=== PATIENT | male | born 1945 | race Caucasian/White ===

== ENCOUNTER 2017-07-19 22:32 | Inpatient (IN) | payer MEDICARE, OTHER ==
[~2017-07-19] VITALS: Ht 180.3 cm; Wt 132.4 kg
[~2017-07-19 22:32] MED LIST: ACTOS 45 MG45 M1; ASPIRIN EC81 M1 PO; B12INJ IM; BLOOD PRESSURE; CARDURA2 MG PO; CARVEDILOL25 MG PO; CIPROFLOXACIN500 M1 PO; COLACE100 MG PO; COREG PO; CRESTOR10 MG PO; CRESTOR20 MG PO; DIABETA; FENOFIBRATE160 MG; FISH OIL 1,0001 EAC5 PO; FLONASE 0.05%50 MCG; GLUCOPHAGE1000 MG; GLYBURIDE 5 MG T5 M1; HCTZ; HYDRALAZINE 2525 MG PO; HYDRALAZINE HC100 MG PO; HYDROCHLOROTHIA25 M1; HYDROCODONE-APA1 TA1 PO; HYDROXYCHLOROQ200 M1 PO; JANUVIA50 MG PO; KLOR-CON 1010 MEQ PO; LANTUS; LASIX 40 MG TAB40 M1 PO; LISINOPRIL40 MG; METFORMIN; MIRALAX255 GM PO; NADOLOL 80 MG; NORCO 10-325 T1 EACH PO; NORCO 7.5-3251 EACH PO; OMEPRAZOLE20 M2 PO; OXYCODONE HCL 55 MG PO; PERCOCET 5-3251 EACH PO; PERCOCET PO; PRADAXA75 MG PO; SORINE 80 MG TA80 M1 PO; TAMSULOSIN HCL0.4 MG PO; XARELTO10 MG PO; ZESTRIL; ZESTRIL20 MG PO; ZOFRAN ODT4 MG SUBLING; [UNRECOGNIZED DRUG - OTHER]
[2017-07-19 22:35] VITALS: BP 200/101
[2017-07-19] MEDS ORDERED: INFED100 MG/2 M (22:41)
[2017-07-19 23:01] LABS: ABSOLUTE BASOPHILS 0.1 thou/uL (0.0-0.2); ABSOLUTE EOSINOPHILS 0.3 thou/uL (0.0-0.7); ABSOLUTE LYMPHOCYTES 0.6 thou/uL (0.8-5.3); ABSOLUTE MONOCYTES 0.3 thou/uL (0.0-1.2); ABSOLUTE NEUTROPHILS 3.3 thou/uL (1.6-8.1); BASOPHILS 1.2 %; EOSINOPHILS 5.8 %; HEMATOCRIT 37.1 % (42.0-52.0); HEMOGLOBIN 12.7 gm/dL (14.0-18.0); LYMPHOCYTES 12.4 %; MCHC 34.2 g/dL (28.0-37.0); MCV 87.7 fL (80.0-100.0); MONOCYTES 6.7 %; MPV 7.9 fl. (7.2-11.1); NUCLEATED RBCS 0 /100WBC; PLATELET COUNT* 94 thou/uL (150-400); POLYS 73.9 %; RBC 4.23 mil/uL (4.50-6.00); RDW-CV 13.3 % (10.5-14.5); WBC 4.5 thou/uL (4.0-11.0)
[2017-07-19 23:11] LABS: ANION GAP 6 mmol/L (7-16); BUN 35 mg/dL (7-18); CALCIUM 8.4 mg/dL (8.5-10.1); CHLORIDE 110 mmol/L (98-107); CO2 28 mmol/L (21-32); GLUCOSE 144 mg/dL (70-99); SODIUM 144 mmol/L (136-145)
[2017-07-19 23:15] LABS: APTT 32.1 Seconds (25.0-31.3); INR 1.1; PROTIME 10.8 Seconds (9.20-11.50)
[2017-07-19 23:29] LABS: ALBUMIN 3.6 g/dL (3.4-5.0); ALKALINE PHOSPHATASE 106 U/L (46-116); CK-MB MASS 0.9 ng/mL (<0.5-3.6); LIPASE 153 U/L (73-393); MAGNESIUM 1.9 mg/dL (1.8-2.4); NT-PRO BRAIN NAT PEPTIDE 1219 pg/mL (<300); SGOT 18 U/L (15-37); SGPT 24 U/L (30-65); TOTAL BILIRUBIN 0.3 mg/dL (<0.1-1.0); TOTAL PROTEIN 6.6 g/dL (6.4-8.2); TROPONIN-I LEVEL <0.06 ng/mL (<0.06)
[2017-07-20 01:10] VITALS: BP 150/83
[2017-07-20 08:00] VITALS: BP 179/88
[2017-07-20 12:09] VITALS: BP 154/86
--- NOTE | 2017-07-20 15:21 | EKG ---
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1945 Requested By: Jarett Hernandez Order Number: [id number] MD: Dominguez Kramer Measurements Intervals [place] Rate: 113 P: CA: QRS: -14 QRSD: 96 T: 76 QT: 357 QTc: 490 Interpretive Statements Atrial fibrillation Abnormal R-wave progression, early transition Minimal ST depression, anterolateral leads Borderline prolonged QT interval Compared to ECG 12/26/2015 10:56:58 ST (T wave) deviation now present Sinus arrhythmia no longer present Electronically Signed On 07-20-2017 15:21:07 RN OBGYN by Dominguez Kramer [email or web address] <ELECTRONICALLY SIGNED> By: Dominguez Kramer MD, FACC 07/20/17 1521 230 230 Dominguez Kramer MD, FACC /EPI
[2017-07-20 17:18] VITALS: BP 159/87
[2017-07-20 20:00] VITALS: BP 169/94
[2017-07-21] VITALS (13 sets, daily range): BP systolic 146–206; BP diastolic 65–113
[2017-07-21 05:10] LABS: ABSOLUTE EOSINOPHILS 0.3 thou/uL (0.0-0.7); ABSOLUTE LYMPHOCYTES 0.7 thou/uL (0.8-5.3); ABSOLUTE MONOCYTES 0.4 thou/uL (0.0-1.2); ABSOLUTE NEUTROPHILS 3.9 thou/uL (1.6-8.1); BASOPHILS 0.9 %; EOSINOPHILS 5.5 %; HEMATOCRIT 35.5 % (42.0-52.0); HEMOGLOBIN 12.4 gm/dL (14.0-18.0); LYMPHOCYTES 13.2 %; MCH 29.8 pg (26.0-34.0); MCHC 34.9 g/dL (28.0-37.0); MCV 85.5 fL (80.0-100.0); MONOCYTES 7.3 %; MPV 8.4 fl. (7.2-11.1); NUCLEATED RBCS 0 /100WBC; PLATELET COUNT* 105 thou/uL (150-400); POLYS 73.1 %; RBC 4.16 mil/uL (4.50-6.00); RDW-CV 13.5 % (10.5-14.5); WBC 5.4 thou/uL (4.0-11.0)
[2017-07-21 05:49] LABS: CALCIUM 8.5 mg/dL (8.5-10.1); CREATININE 1.7 mg/dL (0.6-1.3)
--- NOTE | 2017-07-21 08:50 | CON ---
[address] [address] CONSULTATION Name: REA,BHAVNA R Room: [address] IN .R.#: [id number] Admission: 07/19/17 Attend Phys: Kalie Norton MD Discharge: Date of : 49 Report #: [id number] THIS REPORT FOR: //name// CC: Calixto Norton DATE OF SERVICE: 07/20/2017 COMPUTED TOMOGRAPHY TECHNICIAN: Adarsh Haney MD. CHIEF COMPLAINT: Atrial fibrillation. HISTORY OF PRESENT ILLNESS: The patient is a 72-year-old male with paroxysmal atrial fibrillation, presented with onset of heart racing, skipping and mild dizziness. He was not complaining of chest pain or pressure. He had been anticoagulated with Pradaxa, but then the cost went up and he stopped taking it altogether, but he has been compliant with sotalol. Presently, he only takes sotalol once daily. He denies neuro symptoms, slurred speech, numbness or visual changes. His blood pressure is stable. Denies syncope or presyncope. This is his third recurrence of atrial fibrillation since his initial diagnosis. PAST MEDICAL HISTORY: Paroxysmal atrial fibrillation, status post 2 prior cardioversions, hypertension, obesity, osteoarthritis. HOME MEDICATIONS: Sotalol 80 mg once daily, Lasix 40 mg p.r.n., Plaquenil 200 mg p.o. b.i.d., doxazosin 2 mg daily, rosuvastatin 20 mg daily, omeprazole and iron. ALLERGIES: HE HAS ALLERGIES TO LATEX. SOCIAL HISTORY: He is not a smoker. He drinks wine occasionally. REVIEW OF SYSTEMS: No fevers or chills. RESPIRATORY: No cough or shortness of breath. CARDIOVASCULAR: Positive irregular. Positive palpitations. Denies chest pain, no orthopnea, no PND. MUSCULOSKELETAL: Mild edema. GENITOURINARY: No dysuria or hematuria. SKIN: No rashes. GASTROINTESTINAL: No hematemesis, melena, black colored stools, [place] [address] CONSULTATION Name: BHAVNA REA Room: [address] IN [facility]#: [id number] Admission: 07/19/17 Attend Phys: Kalie Norton MD Discharge: Date of : 49 Report #: [id number] PHYSICAL EXAMINATION: VITAL SIGNS: Blood pressure on presentation. PHYSICAL EXAMINATION: VITAL SIGNS: Blood pressure on presentation was over 200 systolic and inpatient on the IV Cardizem is 179/88, heart rate 66 in atrial fibrillation. Temperature is 37.0, respirations 12. GENERAL: Obese, elderly male who is alert, no apparent distress. HEENT: Eyes, EOMs are intact. No facial asymmetry. NECK: Supple. No jugular venous distention. CARDIOVASCULAR: Irregular, tachycardic. HEMATOLOGIC: No anemia or bleeding disorders. RENAL: No history of kidney failure. LABORATORY DATA: Hemoglobin is 12.7, white blood cell count is 4.5. ECG on presentation demonstrated atrial fibrillation, heart rate 113. Normal ST segments. Borderline LVH, sodium is 144, potassium 4.0, chloride is 110, CO2 is 28, BUN is 35, creatinine is 2.0, GFR is 33, troponin I is 0.06. NT-proBNP is 1219. INR is 1.1. Chest x-ray shows normal single view chest. IMPRESSION: 1. Atrial fibrillation, paroxysmal. This patient does have symptoms when he is in atrial fibrillation. We discussed different treatment options and he would prefer to be in sinus rhythm, I will leave him on IV Cardizem and if he does not convert, we will plan for THADDEUS-guided cardioversion tomorrow. I would like to reload him with sotalol 80 mg twice daily. 2. Hypertension, malignant. He will need more aggressive medical therapy than his Cardura. 3. Oral anticoagulation. I will go ahead and restart oral anticoagulation in anticipation of a possible DC cardioversion with Xarelto. My understanding is that his Pradaxa cost had increased with this plan, but he is unsure of other novel agents which he would prefer to be on. We will provide him with samples while he is checking with his insurance company on cost. <ELECTRONICALLY SIGNED> By: Dominguez Kramer MD, FACC 07/21/17 0850 1111 1730Dominguez Kramer MD, FACC /nt
--- NOTE | 2017-07-21 16:33 | TEE ---
[place] [address] TRANSESOPHAGEAL ECHOCARDIOGRAM Name: BHAVNA ERA Dionte Room: [address] IN [facility]#: [id number] Admission: 07/19/17 Attend Phys: Kalie Norton, Discharge: Date of : 49 Date of Service: 07/21/17 1633 Report #: [id number] THIS REPORT FOR: //name// APPROVED REPORT Study performed: 07/21/2017 12:18:29 EXAM: Transesophageal Echocardiogram Patient Location: In-Patient Room #: [facility] Status: routine BSA: 2.41 HR: 70 bpm BP: 184/115 mmHg Rhythm: Atrial Fibrillation Other Information Study Quality: Good Indications Atrial Fibrillation Echo Enhancing Agent Indication: Rule out Shunt Agent(s) / Amount(s) Used: Agitated Saline 10 cc Procedure After obtaining informed consent, patient underwent transesophageal echo in the [employer]. Type of Sedation : Conscious Sedation Sedation was administered by Jesica Fraser RN. Sedation start time: 1243 Case end Time: 1300 Sedation was achieved intravenously with: Versed (6) Fentanyl (100) Transesophageal probe was inserted and advanced into esophagus without difficulty by Adarsh Haney MD, [facility]. Echo enhancement indication: R/O Septal defect. Echo enhancement agent administered: Agitated Saline The THADDEUS was performed without complications. Synchronized Cardioversion acheived with 360 Joules after 1 attempt(s). Rhythm following Synchronized Cardioversion: Normal Sinus Rhythm Throughout the procedure, the blood pressure, pulse oximetry, cardiac rhythm, and rate were monitored. The patient tolerated the procedure without adverse [place] [address] TRANSESOPHAGEAL ECHOCARDIOGRAM Name: BHAVNA REA Dionte Room: [address] IN [facility]#: [id number] Admission: 07/19/17 Attend Phys: Kalie Norton, Discharge: Date of : 49 Date of Service: 07/21/17 1633 Report #: [id number] from conscious sedation was uneventful and vital signs were stable. Left Ventricle The left ventricle is normal size. There is normal LV segmental wall motion. There is normal left ventricular wall thickness. Left ventricular systolic function is normal. LVEF is 55-60%. Right Ventricle The right ventricle is normal size. The right ventricular systolic function is normal. Atria No thrombus is visualized in the left atrium or appendage. Left atrium is moderately dilated. Interatrial septum is intact without evidence of ASD or PFO. The right atrium size is normal. Aortic Valve The aortic valve is normal in structure. No aortic regurgitation is present. There is no aortic valvular stenosis. Mitral Valve The mitral valve is normal in structure. Trace mitral regurgitation. No evidence of mitral valve stenosis. Tricuspid Valve The tricuspid valve is normal in structure. There is no tricuspid valve regurgitation noted. Pulmonic Valve The pulmonary valve is normal in structure. There is no pulmonic valvular regurgitation. Great Vessels The aortic root is normal in size. Pericardium There is no pericardial effusion. <Conclusion> The left ventricle is normal size. There is normal left ventricular wall thickness. Left ventricular systolic function is normal. Interatrial septum is intact without evidence of ASD or PFO. No thrombus is visualized in the left [place] [address] TRANSESOPHAGEAL ECHOCARDIOGRAM Name: BHAVNA REA Room: [address] IN .R.#: [id number] Admission: 07/19/17 Attend Phys: Kalie Norton, Discharge: Date of : 49 Date of Service: 07/21/171632 Report #: [id number] Left atrium is moderately dilated. Trace mitral regurgitation. <ELECTRONICALLY SIGNED> By: Adarsh Haney MD, FACC 07/21/171632 32 32 Adarsh Haney MD, FACC /INF
[2017-07-21] MEDS ORDERED: KLOR-CON 1010 MEQ PO (18:22)
[2017-07-21] MEDS ORDERED: XARELTO20 MG PO (18:23)
[2017-09-03] MEDS ORDERED: TAMBOCOR 100 M100 M1 PO (08:43)
[2017-09-03] MEDS ORDERED: AMLODIPINE BESYL5 M1 PO (08:44)
== END 2017-07-21 18:45 | disposition home or self-care (01) | DRG 291 ==
LOC: M.ERS 22:32 → M.2W 23:57 → M.TBA-ER 23:57 → M.2W 07-20 01:23
PROVIDERS: Family Medicine; Internal Medicine; ADMIT Internal Medicine
PROC: B246ZZ4 Ultrasonography of Right and Left Heart, Transesophageal (ICD-10-PCS; principal; 2017-07-19)
DX: I13.0 Hypertensive heart and chronic kidney disease with heart failure and stage 1 through stage 4 chronic kidney disease, or unspecified chronic kidney disease (principal); I50.33 Acute on chronic diastolic (congestive) heart failure; Z68.41 Body mass index [BMI] 40.0-44.9, adult; N17.9 Acute kidney failure, unspecified; I48.0 Paroxysmal atrial fibrillation; N18.3 Chronic kidney disease, stage 3 (moderate); K21.9 Gastro-esophageal reflux disease without esophagitis; E66.9 Obesity, unspecified; M19.90 Unspecified osteoarthritis, unspecified site; Z87.891 Personal history of nicotine dependence; Z91.040 Latex allergy status; Z79.899 Other long term (current) drug therapy

== ENCOUNTER 2017-07-23 20:33 | Inpatient (IN) | payer MEDICARE, OTHER ==
[~2017-07-23] VITALS: Ht 180.3 cm; Wt 131.8 kg
[~2017-07-23 20:33] MED LIST changes: +INFED100 MG/2 M; +XARELTO20 MG PO
[2017-07-23 20:34] VITALS: BP 168/74
[2017-07-23] MEDS ORDERED: XARELTO20 MG PO (20:37)
[2017-07-23 20:58] LABS: URINE BILIRUBIN NEGATIVE (Negative); URINE BLOOD 2+ (Negative); URINE CLARITY CLEAR; URINE COLOR YELLOW; URINE GLUCOSE-RANDOM NEGATIVE (Negative); URINE KETONES NEGATIVE (Negative); URINE LEUKOCYTES-REFLEX NEGATIVE (Negative); URINE NITRITE-REFLEX NEGATIVE (Negative); URINE PROTEIN 1+ (Negative); URINE SPECIFIC GRAVITY 1.025 (1.005-1.030); URINE UROBILINOGEN 0.2 E.U./dl (0.2-1.0)
[2017-07-23 21:13] LABS: HEMATOCRIT 32.3 % (42.0-52.0); HEMOGLOBIN 11.3 gm/dL (14.0-18.0); MCH 30.4 pg (26.0-34.0); MCHC 34.8 g/dL (28.0-37.0); MCV 87.4 fL (80.0-100.0); NUCLEATED RBCS 0 /100WBC; PLATELET COUNT* 84 thou/uL (150-400); RDW-CV 13.1 % (10.5-14.5); WBC 6.4 thou/uL (4.0-11.0)
[2017-07-23 21:16] LABS: BACTERIA-REFLEX None Seen /HPF (None Seen); CASTS None Seen /LPF (None Seen); CRYSTALS None Seen /LPF (None Seen); MUCUS None Seen strn/LPF (None Seen); SQUAMOUS 0-3 Few /LPF (0-3); URINE RBC 3-10 Few /HPF (0-2); URINE WBC-REFLEX None Seen /HPF (0-5)
[2017-07-23 21:24] LABS: ANION GAP 8 mmol/L (7-16); BUN 33 mg/dL (7-18); CALCIUM 8.4 mg/dL (8.5-10.1); CHLORIDE 107 mmol/L (98-107); CO2 26 mmol/L (21-32); CREATININE 2.3 mg/dL (0.6-1.3); GLUCOSE 161 mg/dL (70-99); POTASSIUM 4.2 mmol/L (3.5-5.1); SODIUM 141 mmol/L (136-145)
[2017-07-23 21:30] LABS: ALBUMIN 3.3 g/dL (3.4-5.0); ALKALINE PHOSPHATASE 76 U/L (46-116); LIPASE 113 U/L (73-393); SGOT 13 U/L (15-37); SGPT 16 U/L (30-65); TOTAL BILIRUBIN 0.5 mg/dL (<0.1-1.0); TOTAL PROTEIN 6.2 g/dL (6.4-8.2); TROPONIN-I LEVEL <0.06 ng/mL (<0.06)
[2017-07-23 21:47] LABS: ABSOLUTE EOSINOPHILS 0.1 thou/uL (0.0-0.7); ABSOLUTE LYMPHOCYTES 0.7 thou/uL (0.8-5.3); ABSOLUTE MONOCYTES 0.1 thou/uL (0.0-1.2); ABSOLUTE NEUTROPHILS 5.5 thou/uL (1.6-8.1)
[2017-07-23 21:55] LABS: PLATELET ESTIMATE DECREASED
[2017-07-23 22:01] LABS: MACROCYTES Occasional; MICROCYTES Occasional
[2017-07-23 22:05] LABS: INR 1.3; PROTIME 12.2 Seconds (9.20-11.50)
[2017-07-24] VITALS (21 sets, daily range): BP systolic 113–183; BP diastolic 62–94
--- NOTE | 2017-07-24 06:57 | NUR ---
RECEIVED REPORT FROM ER NURSE, KEILA RING, AT 2307. PT ARRIVED TO UNIT AT 2357. PT AAOX4, FAMILY AT BEDSIDE, PT PLACED ON TELE MONITOR, TRACING SINUS RHYTHM. HOURLY ROUNDING COMPLETED, CALL LIGHT WITHIN REACH, PRN PAIN MEDICATION ADMINISTERED THIS SHIFT X2, DR. GRIJALVA NOTIFIED OF PT'S BP OF 183/78. NEW ORDERS RECEIVED AND ADMINISTERED. HOURLY ROUNDING COMPLETED, CALL LIGHT WITHIN REACH. SURGERY CONSENT SIGNED BY PATIENT.
--- NOTE | 2017-07-24 10:00 | NUR ---
ASSUMED PT CARE 0730. DR IN WITH PT, UNABLE TO DO AM ASSESSMENT. PT TAKEN BY PACU. WILL ASSESS PT WHEN BACK FROM SURGERY.
--- NOTE | 2017-07-24 12:49 | EKG ---
[place] [address] ELECTROCARDIOGRAM REPORT Name: VIJAY REASANDRINE Rapp Room: [address] ADM IN .R.#: [id number] Admission: 07/23/17 Attend Phys: Brittnee Chavez Discharge: Date of : 49 Report #: [id number] THIS REPORT FOR: //name// [facility] ED Test Date: 2017-07-23 Test Time: 20:55:22 Pat Name: BHAVNA REA Department: Room: 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1945 Requested By: Jarett Hernandez Order Number: [id number] MD: Adarsh Haney Measurements Intervals [place] Rate: 70 P: -8 OK: 193 QRS: -11 QRSD: 102 T: 52 QT: 430 QTc: 464 Interpretive Statements Sinus rhythm Abnormal R-wave progression, early transition Baseline wander in lead(s) V2 Compared to ECG 07/19/2017 23:02:43 Atrial fibrillation no longer present ST (T wave) deviation no longer present Electronically Signed On 07-24-2017 12:48:52 SUPPORT ENGINEER by Adarsh Haney [email or web address] <ELECTRONICALLY SIGNED> By: Adarsh Haney MD, FACC 07/24/17 1248 54 54 Adarsh Haney MD, FAC /EPI
--- NOTE | 2017-07-24 16:48 | NUR ---
PT A/O X'S 4. FORGETFUL. PT WENT INTO AFIB RVR. PT'S HEART MEDICATION ADMININSTERED AROUND 1400. PT DID NOT HAVE ORDERS PRIOR TO GOING TO PACU. CARDIOLOGY CALLED PT HR IN 140'S. RECEIVED PRN IV LOPRESSOR AND ADMININSTERED PER JUL. PT HR WENT TO 90'S - 110'S AND THEN BACK TO 140. CARDIOLOGY PAGED AGAIN. NO RETURN CALL FOR 1 HOUR. WILL RE-PAGE CARDIOLOGY. AT TIMES HR 117 AND THEN BACK TO 130'S. PT C/O OF ABDOMINAL PAIN 5/10 IN ABDOMEN. PT C/O OF PRESSURE IN BLADDER AND NOT BEING ABLE TO URINATE. PT STOOD TO VOID AND UNABLE TO VOID. BLADDER SCANNED PT AND PT 238. PT REPORTS HE WILL ATTEMPT LATER ON. PT EDUCATED ABOUT [place]ARK. THERE ARE ORDERS TO STRAIGHT CATH. WILL CONTINUE TO MONITOR.
--- NOTE | 2017-07-24 17:54 | NUR ---
CALLED CARDIOLOGY ABOUT HR IN 110-130'S. RECEIVED ORDER FOR PO SOTALOL 40MG ONE TIME NOW.
--- NOTE | 2017-07-24 18:30 | NUR ---
IV MORPHINE AND IV ZOFRAN ADMINISTERED PER EMAR.
[2017-07-25] VITALS: BP 109/70
[2017-07-25 04:00] VITALS: BP 117/63
--- NOTE | 2017-07-25 04:53 | NUR ---
A&O X4 CALM COOPERITVE. PT X1 ASSIST. PT HAD NOT URNINATED SINCE SURGERY, STRAIGHT CATH WAS DONE, 600 OUT. CLR LUNGS. SURGERY SIGHTS CLEAN DRY INTACT. AFIB ON THE MONITOR. HR HAS COME DOWN STABLE AT LOW 70'S TO MID 70'S. VITALS WNL. FALL PRECAUTIONS IN PLACE. HOURLY ROUNDING FOR SAFETY.
[2017-07-25 05:08] LABS: HEMATOCRIT 26.6 % (42.0-52.0); MCH 30.4 pg (26.0-34.0); MCV 86.8 fL (80.0-100.0); MPV 8.6 fl. (7.2-11.1); RBC 3.06 mil/uL (4.50-6.00); RDW-CV 13.5 % (10.5-14.5); WBC 5.9 thou/uL (4.0-11.0)
[2017-07-25 05:21] LABS: HEMOGLOBIN 9.3 gm/dL (14.0-18.0)
[2017-07-25 05:45] LABS: CALCIUM 7.6 mg/dL (8.5-10.1); CREATININE 2.9 mg/dL (0.6-1.3); POTASSIUM 4.3 mmol/L (3.5-5.1)
[2017-07-25 08:00] VITALS: BP 130/62
--- NOTE | 2017-07-25 09:16 | CON ---
[address] [address] CONSULTATION Name: BHAVNA REA Room: [address] IN .R.#: [id number] Admission: 07/23/17 Attend Phys: Brittnee Chavez Discharge: Date of : 49 Report #: [id number] THIS REPORT FOR: //name// CC: Calixto Larsen DATE OF SERVICE: 07/24/2017 INDICATION: Preoperative evaluation in patient with paroxysmal atrial arrhythmias. HISTORY OF PRESENT ILLNESS: The patient is a very pleasant 72-year-old gentleman who was actually in the hospital last week with paroxysmal atrial fibrillation. He underwent transesophageal-guided cardioversion. He had been anticoagulated. THADDEUS showed no evidence of intracardiac thrombus and his cardioversion was uneventful. He was discharged to home on antiarrhythmics and blood thinners. The patient apparently was readmitted yesterday with acute appendicitis. He has had his appendectomy uneventfully and is recovering presently. He remains in sinus rhythm. He is without cardiac complaint. PAST MEDICAL HISTORY: 1. Paroxysmal atrial fibrillation, status post cardioversion x 3 in the past. 2. Hypertension. 3. Obesity. 4. Osteoarthritis. PAST SURGICAL HISTORY: Laparoscopic appendectomy this morning. HOME MEDICATIONS: Colace 100 mg p.r.n., Cardura 8 mg daily, furosemide 80 mg as directed p.r.n. for fluid retention, [place] 10/325 q. 4-6 hours p.r.n., Plaquenil 200 mg b.i.d., iron supplement daily, omeprazole 40 mg daily, potassium 10 mEq b.i.d., Xarelto 20 mg at dinner, Crestor 20 mg daily, sotalol 80 mg b.i.d., vitamin B12 1000 mcg intramuscularly monthly. ALLERGIES: LATEX. SOCIAL HISTORY: The patient drinks alcohol occasionally. He does not smoke. PHYSICAL EXAMINATION: VITAL SIGNS: Blood pressure 172/84, pulse 69 and regular. GENERAL: This is a pleasant gentleman, who is in no distress. Mood and affect appropriate. HEENT: The patient is wearing glasses. Extraocular muscles intact. Mucous membranes are moist. NECK: Examination of the neck shows no jugular venous distention. CHEST: Chest reveals clear lung beard [place] [address] CONSULTATION Name: BHAVNA REA Room: [address] IN [facility]#: [id number] Admission: 07/23/17 Attend Phys: Brittnee Chavez Discharge: Date of : 49 Report #: [id number] CARDIAC: Reveals a regular rhythm without gallop or murmur. ABDOMEN: Reveals slight tenderness. Bowel sounds diminished. EXTREMITIES: Show no edema. Peripheral pulses 2+ and palpable. SKIN: Dry. DIAGNOSTIC DATA: The preoperative EKG shows sinus rhythm without acute ST or T-wave abnormality. IMPRESSION AND RECOMMENDATIONS: 1. Paroxysmal atrial fibrillation. Continue sotalol twice daily. Resume Xarelto when okay postoperatively. 2. Hypertension. The patient is on medications as outlined above at home. We will resume home medications and follow clinically. 3. Chronic anticoagulation. He is having no significant bleeding problems. <ELECTRONICALLY SIGNED> By: Adarsh Haney MD, FACC 07/25/17 0916 1138 1944Adarsh Haney MD, FACC /nt
[2017-07-25 12:00] VITALS: BP 114/62
[2017-07-25 15:30] VITALS: BP 100/51
--- NOTE | 2017-07-25 18:15 | NUR ---
ASSUMED CARE OF PATIENT AT THIS TIME. REPORT RECEIVED FROM NATHANIEL. PATIENT HAS COMPLAINTS OF ABDOMINAL PAIN 08/31, HYDROCOSONE GIVEN. PATIENT IS UP IN CHAIR. PATIENT IS UP STANDBY ASSIST. 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 NO OTHER CONCERNS/COMPLAINTS VOICED AT THIS TIME. CALL LIGHT WITHIN REACH. WILL CONTINUE TO MONITOR.
[2017-07-25 20:20] VITALS: BP 117/67
[2017-07-26] VITALS: BP 112/64
[2017-07-26 04:18] VITALS: BP 148/79
[2017-07-26 04:25] VITALS: BP 158/83
[2017-07-26 04:48] LABS: HEMATOCRIT 23.7 % (42.0-52.0); HEMOGLOBIN 8.3 gm/dL (14.0-18.0); MCHC 35.1 g/dL (28.0-37.0); NUCLEATED RBCS 0 /100WBC; RBC 2.73 mil/uL (4.50-6.00)
[2017-07-26 04:52] LABS: ABSOLUTE EOSINOPHILS 0.1 thou/uL (0.0-0.7); ABSOLUTE LYMPHOCYTES 0.6 thou/uL (0.8-5.3); ABSOLUTE MONOCYTES 0.4 thou/uL (0.0-1.2); ABSOLUTE NEUTROPHILS 3.8 thou/uL (1.6-8.1); BASOPHILS 0.6 %; LYMPHOCYTES 12.2 %; MCH 30.5 pg (26.0-34.0); MCV 86.7 fL (80.0-100.0); MONOCYTES 7.6 %; MPV 9.4 fl. (7.2-11.1); PLATELET COUNT* 93 thou/uL (150-400); POLYS 76.6 %; RDW-CV 13.4 % (10.5-14.5)
[2017-07-26 05:03] LABS: ALBUMIN 2.5 g/dL (3.4-5.0); CALCIUM 7.7 mg/dL (8.5-10.1); CREATININE 3.2 mg/dL (0.6-1.3); TOTAL BILIRUBIN 0.4 mg/dL (<0.1-1.0); TOTAL PROTEIN 4.9 g/dL (6.4-8.2)
--- NOTE | 2017-07-26 06:36 | NUR ---
Pt states he feels like it takes a long time to recover after up to bathroom. C/O shortness of air. VSS. Cr up to 3.2 from 2.9 yesterday. Also c/o chronic pain to knees and shoulders. See JUL. Pt states he is passing a lot of gas. Placed new IV this morning as other IV was leaking late in shift. Remains in Afib per monitor, rate controlled. Will continue to monitor.
[2017-07-26 08:00] VITALS: BP 128/74
[2017-07-26 11:36] LABS: HEMATOCRIT 27.6 % (42.0-52.0); HEMOGLOBIN 9.5 gm/dL (14.0-18.0); MCH 30.3 pg (26.0-34.0); MCHC 34.5 g/dL (28.0-37.0); MCV 87.7 fL (80.0-100.0); MPV 8.6 fl. (7.2-11.1); RBC 3.15 mil/uL (4.50-6.00); RDW-CV 13.6 % (10.5-14.5); WBC 5.8 thou/uL (4.0-11.0)
--- NOTE | 2017-07-26 14:29 | NUR ---
Nutrition: Pt admitted with appy. Assessed for consult "unknown." Pt is on Fiber restricted diet. Passing gas. Will discharge tomorrow. H/o CKD IV, gerd. Wt: 275# at admit; today is 290#. Questioning accuracy of today's wt. Labs: BG ok, BUN 42, creat 3.2, albumin 2.5. No nutrition interventions needed at this time. Low risk.
[2017-07-26 16:15] VITALS: BP 170/91
[2017-07-26 19:35] VITALS: BP 168/81
--- NOTE | 2017-07-26 19:38 | NUR ---
ASSUMED RESPONSIBILITY OF PT THIS AM PT IS ALERT AND ORIENTED X 4 SLIGHTLY IRRITABLE T/O DAY UPSET ABOUT ANTACID NOT RESTARTED GOT ORDER AND PT STILL KIND OF IRRITABLE PT IS IN AFIB TACHY AT TIMES CREAT WENT FROM 2.9 TO 3.2 NEPHRO CAME AND ORDERED BLADDER SCAN AND DOPPLER NS AT 80ML/H CONTINUES SOTALOL CHANGED TO METOPROLOL TODAY DENIES ANY PAIN ONLY COMPLAINT WAS HEARTBURN TOLERATED REGULAR DIET
[2017-07-27 00:37] VITALS: BP 168/83
[2017-07-27 03:40] VITALS: BP 167/90
--- NOTE | 2017-07-27 04:26 | NUR ---
ASSUMED CARE OF PT AT 1900. PT IS ALERT AND ORIENTED. VSS. PERRLA. NO COMPLAINTS OF PAIN. BLADDER SCAN SHOWED 0 POST VOID. PT IS IN A FIB ON THE TELEMETRY. PT IS RESTING COMFORTABLY IN BED. RESPIRATIONS ARE EVEN AND NONLABORED. WILL CONTINUE TO MONITOR PT.
[2017-07-27 04:30] LABS: ABSOLUTE EOSINOPHILS 0.1 thou/uL (0.0-0.7); ABSOLUTE LYMPHOCYTES 0.4 thou/uL (0.8-5.3); ABSOLUTE MONOCYTES 0.3 thou/uL (0.0-1.2); ABSOLUTE NEUTROPHILS 2.9 thou/uL (1.6-8.1); BASOPHILS 0.6 %; EOSINOPHILS 3.1 %; HEMATOCRIT 25.8 % (42.0-52.0); MCH 30.3 pg (26.0-34.0); MCHC 34.7 g/dL (28.0-37.0); MCV 87.1 fL (80.0-100.0); MPV 9.5 fl. (7.2-11.1); NUCLEATED RBCS 0 /100WBC; PLATELET COUNT* 103 thou/uL (150-400); POLYS 79.3 %; RBC 2.96 mil/uL (4.50-6.00); RDW-CV 13.2 % (10.5-14.5); WBC 3.7 thou/uL (4.0-11.0)
[2017-07-27 04:42] LABS: ALBUMIN 2.6 g/dL (3.4-5.0); CALCIUM 7.9 mg/dL (8.5-10.1); CREATININE 2.4 mg/dL (0.6-1.3); MAGNESIUM 2.1 mg/dL (1.8-2.4); PHOSPHORUS* 2.4 mg/dL (2.5-4.9); POTASSIUM 3.8 mmol/L (3.5-5.1)
[2017-07-27 04:43] LABS: URINE BILIRUBIN NEGATIVE (Negative); URINE BLOOD 1+ (Negative); URINE CLARITY CLEAR; URINE COLOR YELLOW; URINE GLUCOSE-RANDOM NEGATIVE (Negative); URINE KETONES NEGATIVE (Negative); URINE LEUKOCYTES-REFLEX NEGATIVE (Negative); URINE NITRITE-REFLEX NEGATIVE (Negative); URINE PROTEIN 1+ (Negative); URINE UROBILINOGEN 0.2 E.U./dl (0.2-1.0)
[2017-07-27 05:27] LABS: BACTERIA-REFLEX 1-9 Few /HPF (None Seen); CASTS None Seen /LPF (None Seen); MUCUS 0-3 Light strn/LPF (None Seen); SQUAMOUS 0-3 Few /LPF (0-3); URINE RBC 3-10 Few /HPF (0-2); URINE WBC-REFLEX 0-5 Rare /HPF (0-5)
[2017-07-27 05:28] LABS: CALCIUM OXALATE 0-3 Few /LPF (None Seen)
[2017-07-27 06:00] LABS: ALBUMIN 2.6 g/dL (3.4-5.0); CREATININE 2.4 mg/dL (0.6-1.3); POTASSIUM 3.8 mmol/L (3.5-5.1); TOTAL BILIRUBIN 0.5 mg/dL (<0.1-1.0); TOTAL PROTEIN 5.4 g/dL (6.4-8.2)
[2017-07-27 07:35] VITALS: BP 162/84
--- NOTE | 2017-07-27 10:56 | S ---
[place] [address] SURGICAL PATH RPT PROCEDURE Name: ANTHONY REA Dionte Room: [address] IN M.R.#: [id number] Admission: 07/23/17 Date of : 49 Discharge: Report #: [id number] Path Case #: [id number] PATHOLOGY REPORT COLLECTION DATE: 07/24/2017 RECEIVED DATE: 07/26/2017 SUBMITTING PHYS: Dr. Leigh Roman OTHER PHYS: Dr. Say Gabriel DO SPECIMEN(S) RECEIVED: A.Appendix * * * * * * * * * * * * FINAL DIAGNOSIS: Appendix: - Acute gangrenous appendicitis, periappendicitis and serositis. (TERESE:sina; 07/27/2017) PATHOLOGIST: Marlon South M.D. REPORT ELECTRONICALLY SIGNED BY: Marlon South M.D. DATE/TIME: 07/27/2017 10:56 * * * * * * * * * * * * GROSS PATHOLOGY: Received in formalin labeled "Trent Anthony, appendix" and consists of a 5.0 cm in length by 1.2 cm in diameter vermiform appendix. The contiguous mesoappendix, 3.7 x 2.3 x 0.8 cm, is markedly congested. The serosa is dark red maroon. The margin is inked black. Sectioning reveals a pinpoint lumen. An obvious perforation is not identified. There are no fecaliths identified. The mucosa is green, guo, and focally black. There is gross transmural necrosis. Ream Cutter sections are submitted as A1. (LEÓN; 07/26/2017) CLINICAL HISTORY: Perforated appendix INITIAL CPT CODE(S): A; 42141 Professional [facility] by [facility], [address] [place] [address].[place] [address]. Technical services performed by [facility] at [address] [place] [address], [facility] [address] [address]. [place] [address] SURGICAL PATH RPT PROCEDURE Name: ANTHONY REA Room: [address] IN M.R.#: [id number] Admission: 07/23/17 Date of : 49 Discharge: Report #: [id number] Path Case #: [id number] [address] PHONE: [phone] DIRECTOR: Bernardo Burks M.D. * * * END OF REPORT * * *
--- NOTE | 2017-07-27 15:49 | CON ---
[address] [address] CONSULTATION Name: BHAVNA REA Room: [address] IN .R.#: [id number] Admission: 07/23/17 Attend Phys: Brittnee Chavez Discharge: Date of : 49 Report #: [id number] THIS REPORT FOR: //name// CC: Calixto Larsen DATE OF SERVICE: 07/26/2017 CONSULTING PHYSICIAN: Dr. Larsen. REASON FOR CONSULTATION: Acute kidney injury. HISTORY OF PRESENT ILLNESS: A 72-year-old gentleman admitted with appendicitis and was taken to the operating room for laparoscopic appendectomy, found to have perforated appendicitis. He is now postop laparoscopic appendectomy and is currently on antibiotics. I was asked to see him because of a rise in his serum creatinine. On 07/21/2017, his creatinine was 1.7; on 07/23/2017 at 2.3; on 07/25/2017 at 2.9, now 3.2. He has no complaints at present. REVIEW OF SYSTEMS: Constitutional, psych, heme, eyes, ENT, respiratory, cardiac, GI, , endocrine, all negative except as documented above. PAST MEDICAL HISTORY: Chronic kidney disease stage III, degenerative joint disease, sleep apnea, hypertension, history of AFib, diabetes type 2, history of total right and left knee replacements in 2005 and 2007, AFib, dyslipidemia, GERD. CURRENT MEDICATIONS: Reviewed. SOCIAL HISTORY: Quit smoking in 1992. FAMILY HISTORY: Positive for hypertension. PHYSICAL EXAMINATION: VITAL SIGNS: Blood pressure 128/74, pulse 92, temperature 36.6. GENERAL: In no acute distress. EYES: Extraocular movements intact. EARS: Externally normal. CARDIOVASCULAR: Regular rate. LUNGS: Clear to auscultation. ABDOMEN: Soft. LYMPHATICS: Positive swelling. PSYCHIATRIC: Awake, alert. LABORATORY DATA: White cell count 5.8, hemoglobin 9.5, platelets 109. Sodium 143, potassium 4, chloride 108, bicarbonate 26, BUN 42, creatinine 3.2, [place] [address] CONSULTATION Name: BHAVNA REA Room: [address] IN [facility]#: [id number] Admission: 07/23/17 Attend Phys: Brittnee Chavez Discharge: Date of : 49 Report #: [id number] 103, calcium 7.7. ASSESSMENT: 1. Acute kidney injury in the setting of appendicitis. Admission creatinine was 2.3; on 07/21/2017, creatinine 1.7. On 07/23/2017, CT scan, kidneys were okay, and June 2017 THADDEUS showed an ejection fraction of 55-60%. 2. Chronic kidney disease, stage 3. Followed by Dr. Cristina. Baseline creatinine probably about 1.7-2. When he last saw Dr. Cristina in March 2017, creatinine was 1.8. 3. Mild proteinuria with urine protein to creatinine ratio of 432. 4. Hypoalbuminemia with an albumin of 2.5. 5. Anemia. 6. Hypertension. PLAN: 1. Recheck UA. 2. He does have some unilateral swelling. We will check a right lower extremity ultrasound. 3. Strict I's and O's. 4. Check bladder scan. 5. Pharmacy consult to renally dose Xarelto. 6. He is on a PPI and Zosyn, both of these can cause interstitial nephritis. We will recheck a UA. 7. Continue IV fluids. 8. Check magnesium. Discontinue magnesium hydroxide. 9. I would hold on any discharge plans until renal function is stabilizing. Thank you for requesting my opinion in the care and management of this patient. <ELECTRONICALLY SIGNED> By: Estrada Layton MD 07/27/17 1549 1610 1855Asoheila Layton MD /nt
[2017-07-27 16:20] VITALS: BP 186/87
[2017-07-27 17:21] VITALS: BP 186/87
[2017-07-27] MEDS ORDERED: LOPRESSOR100 M1 PO (17:35)
--- NOTE | 2017-07-27 18:21 | NUR ---
PATIENT A&OX4, ROOM AIR, IV RIGHT AC, SALINE LOCK. UP AD FAREED, STEADY GIAT. C/O PAIN, RELIEF WITH MEDICATION. NO C/O N/V. PATIENT D/C TODAY. IV DISCONTINUED, CATHETER FULLY INTACT. RECIEVED DISCHARGE ORDERS VIA TELEPHONE WITH PHYSICIAN. REVIEWED DISCHARGE PAPERWORK WITH PATIENT, WHILE SPOUSE WAS AT BEDSIDE. VERBALIZES UNDERSTANDING, NO FURTHER QUESTIONS AT THIS TIME. APPROPRAITE AND COOPORATIVE WITH CARE. LEFT UNIT AT 1820 VIA W/C WITH NURSING STAFF. ALL BELONGINGS TAKEN WITH PATIENT, NOTHING LEFT BEHIND.
--- NOTE | 2017-08-11 00:59 | OP ---
[facility] [address] [place] [address] OPERATIVE REPORT Name: BHAVNA REA Room: [address] IN M.R.#: [id number] Admission: 07/23/17 Attend Phys: Brittnee Chavez Discharge: 07/27/17 Date of : 49 Report #: [id number] THIS REPORT FOR: //name// CC: Calixto Parr DATE OF SERVICE: 07/24/2017 PREOPERATIVE DIAGNOSIS: Acute appendicitis. POSTOPERATIVE DIAGNOSIS: Perforated appendicitis. PROCEDURE: Laparoscopic appendectomy. SURGEON: Leigh Roman M.D. STATION CAPTAIN: ESTIMATED BLOOD LOSS: 10.. COMPLICATIONS: None. FINDINGS: 1. Perforated appendix. Apparently well sealed anterior abdominal wall. 2. Some focal adhesions of omentum around the left sigmoid colon. SPECIMENS: Appendix. DESCRIPTION OF PROCEDURE: Fully informed consent obtained preoperatively. Full discussion of risks, benefits, alternatives, questions answered. The patient understood risk of bleeding, infection, reoperation, injury to surrounding structures including bowel, conversion to open, alternative or missed pathology, chronic pain and catastrophic complications up to cardiopulmonary failure and . The patient understood and wished to proceed. He was taken to the operating room, we prepped and draped in standard sterile fashion. Timeout performed with all in agreement. We began with a 12 mm incision above the umbilicus, used open Anuradha technique to enter safely into the abdomen. Abdomen was insufflated to 40 mmHg. I surveyed the abdomen. Of note, there were significant omental adhesions to the left lower quadrant overlying the sigmoid colon. Given this, I placed an additional 5 mm trocar in the left lower quadrant as well as in the right upper quadrant as this was easier to view the gallbladder. The appendix was noted to be inflamed and attached to the right anterior abdominal wall. It was gently pressed, dissected away from this. There was a noted perforation in the appendix with minimal spillage. I used Harmonic to take down the mesoappendix up to the base where the tinea The [address] [address] OPERATIVE REPORT Name: BHAVNA REA Room: [address] IN ..#: [id number] Admission: 07/23/17 Attend Phys: Brittnee Chavez Discharge: 07/27/17 Date of : 49 Report #: [id number] blue load Endo-NEIL stapler was fired across the base. The appendix was placed in the EndoCatch bag and removed. I slowly desufflated the abdomen and reinspected the staple line, it was without any evidence of bleeding. I irrigated copiously right lower quadrant, suctioned out all clear fluid. Next, I turned my attention to taking down omental adhesions. I continued this dissection up to where it was very closely adhered to the sigmoid colon. I did not want to risk injury to the underlying colon. I did discuss with the patient's family, potential need for early colonoscopy following resolution of the current illness, and they confirmed they would proceed with that. Ports were removed under visualization. There was no bleeding. 0 Vicryl on a UR-6 used to close the umbilical fascia, 20 mL of 0.5% Marcaine with epinephrine were injected in the skin and fascia. Finger sweep confirmed no entrapped contents in the fascia and that there was no hernia defect. 4-0 Monocryl used to close skin. Sterile dressing applied. Sponge, needle, instrument counts correct at the end of the case. The patient tolerated well. <ELECTRONICALLY SIGNED> By: Leigh Roman MD 08/11/17 0059 1059 1231Darcy Siddharth Roman MD /nt
[2017-09-03] MEDS ORDERED: TAMBOCOR 100 M100 M1 PO (08:43)
[2017-09-03] MEDS ORDERED: AMLODIPINE BESYL5 M1 PO (08:44)
== END 2017-07-27 18:20 | disposition home or self-care (01) | DRG 338 ==
LOC: M.ERS 20:33 → M.TBA-ER 22:28 → M.2W 07-24 00:01 → M.3W 07-25 18:19
PROVIDERS: Family Medicine; Internal Medicine Nephrology; Surgery; ADMIT Internal Medicine
PROC: 0DTJ4ZZ Resection of Appendix, Percutaneous Endoscopic Approach (ICD-10-PCS; principal; 2017-07-24)
DX: K35.2 Acute appendicitis with generalized peritonitis (principal); I50.33 Acute on chronic diastolic (congestive) heart failure; R65.11 Systemic inflammatory response syndrome (SIRS) of non-infectious origin with acute organ dysfunction; Z68.41 Body mass index [BMI] 40.0-44.9, adult; N17.9 Acute kidney failure, unspecified; I13.0 Hypertensive heart and chronic kidney disease with heart failure and stage 1 through stage 4 chronic kidney disease, or unspecified chronic kidney disease; N18.4 Chronic kidney disease, stage 4 (severe); K21.9 Gastro-esophageal reflux disease without esophagitis; I48.0 Paroxysmal atrial fibrillation; E66.9 Obesity, unspecified; M19.90 Unspecified osteoarthritis, unspecified site; E11.22 Type 2 diabetes mellitus with diabetic chronic kidney disease; Z96.653 Presence of artificial knee joint, bilateral; E78.5 Hyperlipidemia, unspecified; R80.9 Proteinuria, unspecified; D64.9 Anemia, unspecified; Z79.899 Other long term (current) drug therapy; Z91.040 Latex allergy status; Z87.891 Personal history of nicotine dependence; Z79.01 Long term (current) use of anticoagulants; Z82.49 Family history of ischemic heart disease and other diseases of the circulatory system

== ENCOUNTER → 2017-08-26 | Outpatient (CLI) | payer MEDICARE, OTHER ==
[2017-08-26] VITALS (10 sets, daily range): BP systolic 146–181; BP diastolic 77–103
[~2017-08-26] MED LIST changes: +ACETAMINOPHEN-1 EAC1 PO; +AMLODIPINE BESYL5 M1 PO; +KEFLEX500 M1 PO; +LOPRESSOR100 M1 PO; +TAMBOCOR 100 M100 M1 PO
--- NOTE | 2017-08-26 16:17 | TEE ---
[place] [address] TRANSESOPHAGEAL ECHOCARDIOGRAM Name: BHAVNA REA Room: [facility]#: [id number] Admission: 08/26/17 Attend Phys: Adarsh Haney, Discharge: Date of : 49 Date of Service: 08/26/17 1617 Report #: [id number] THIS REPORT FOR: //name// APPROVED REPORT Study performed: 08/26/2017 13:05:25 EXAM: Transesophageal Echocardiogram Patient Location: Out-Patient Status: routine BSA: 2.41 HR: 83 bpm BP: 167/92 mmHg Rhythm: Atrial Fibrillation Other Information Study Quality: Good Indications Atrial Fibrillation pre ablation Echo Enhancing Agent Indication: Rule out Shunt Agent(s) / Amount(s) Used: Agitated Saline 10 cc Procedure After obtaining informed consent, patient underwent transesophageal echo in the [employer]. Type of Sedation : Conscious Sedation Sedation was administered by Jesica Fraser RN. Sedation start time: 1304 Case end Time: 1320 Sedation was achieved intravenously with: Versed (6) Fentanyl (150) Transesophageal probe was inserted and advanced into esophagus without difficulty by Adarsh Haney MD, FACC. Echo enhancement indication: R/O Septal defect. Echo enhancement agent administered: Agitated Saline The THADDEUS was performed without complications. Throughout the procedure, the blood pressure, pulse oximetry, cardiac rhythm, and rate were monitored. The patient tolerated the procedure without adverse effects. Recovery from conscious sedation was uneventful and vital signs were stable. [address] [address] TRANSESOPHAGEAL ECHOCARDIOGRAM Name: BHAVNA REA Dionte Room: [facility]#: [id number] Admission: 08/26/17 Attend Phys: Adarsh Haney, Discharge: Date of : 49 Date of Service: 08/26/17 1617 Report #: [id number] Left Ventricle The left ventricle is normal size. There is normal left ventricular wall thickness. The left ventricular systolic function is normal. LVEF is 60-65%. Right Ventricle The right ventricle is normal size. Atria Left atrium is mildly dilated. No thrombus is visualized in the left atrium or appendage. Interatrial septum is intact without evidence of ASD or PFO. The right atrium size is normal. Aortic Valve The aortic valve is normal in structure. No aortic regurgitation is present. Mitral Valve The mitral valve is normal in structure. Mild mitral regurgitation. Tricuspid Valve Trace tricuspid regurgitation. Pulmonic Valve Pulmonic valve is not well visualized. Great Vessels The aortic root is normal in size. The ascending aorta is normal in size. Pericardium There is no pericardial effusion. <Conclusion> The left ventricle is normal size. There is normal left ventricular wall thickness. The left ventricular systolic function is normal. LVEF is 60-65%. Left atrium is mildly dilated. No thrombus is visualized in the left atrium or appendage. Interatrial septum is intact without evidence of [place] [address] TRANSESOPHAGEAL ECHOCARDIOGRAM Name: REABHAVNA Beaulieu Room: [facility]#: [id number] Admission: 08/26/17 Attend Phys: Adarsh Haney, Discharge: Date of : 49 Date of Service: 08/26/171616 Report #: [id number] Mild mitral regurgitation. Trace tricuspid regurgitation. <ELECTRONICALLY SIGNED> By: Adarsh Haney MD, FACC 08/26/171616 16 16 Adarsh Haney MD, FACC /INF
== END ==
LOC: M.CL 11:37
DX: I48.91 Unspecified atrial fibrillation (principal)

== ENCOUNTER 2018-01-24 15:33 | Emergency (ER) | payer MEDICARE, OTHER ==
[~2018-01-24] VITALS: Ht 180.3 cm; Wt 126.1 kg
[~2018-01-24 15:33] MED LIST changes: -ACETAMINOPHEN-1 EAC1 PO; -KEFLEX500 M1 PO
[2018-01-24] MEDS ORDERED: KEFLEX500 M1 PO (16:31)
[2018-01-24] MEDS ORDERED: ACETAMINOPHEN-1 EAC1 PO (16:31)
[2018-01-24 17:33] VITALS: BP 126/78
== END 2018-01-24 17:34 | disposition home or self-care (01) ==
LOC: M.ERS 15:33
DX: S61.012A Laceration without foreign body of left thumb without damage to nail, initial encounter (principal); I48.91 Unspecified atrial fibrillation; K21.9 Gastro-esophageal reflux disease without esophagitis; I11.0 Hypertensive heart disease with heart failure; I50.9 Heart failure, unspecified; Z91.041 Radiographic dye allergy status; Z87.891 Personal history of nicotine dependence; Z88.8 Allergy status to other drugs, medicaments and biological substances; W26.8XXA Contact with other sharp object(s), not elsewhere classified, initial encounter; Y93.89 Activity, other specified; Y92.89 Other specified places as the place of occurrence of the external cause; Y99.8 Other external cause status

== ENCOUNTER → 2018-02-08 | Outpatient (CLI) | payer MEDICARE, OTHER ==
[~2018-02-08] MED LIST changes: +ACETAMINOPHEN-1 EAC1 PO; +KEFLEX500 M1 PO
--- NOTE | 2018-02-09 22:26 | SLEEP ---
[address] [address] SLEEP STUDY REPORT Name: BHAVNA REA Room: [facility]#: [id number] Admission: 02/08/18 Attend Phys: Gualberto Duarte Discharge: Date of : 49 Report #: [id number] THIS REPORT FOR: //name// CC: Calixto Parra MD This study has been reviewed in its entirety by a board certified sleep specialist DATE OF SERVICE: 02/08/2018 ATTENDING PHYSICIAN: Du Parra MD The patient is 72 years old who weighs 275 pounds with a BMI of 38.4. The patient's Muldrow score was 9 out of a maximum of 24. The patient was referred to the sleep lab to rule out sleep apnea. During the night study, the patient spent 342 minutes in bed and slept for 150 minutes with a low sleep efficiency of 44%. Sleep latency was 20.1 minutes with absent REM sleep. Overall, sleep architecture showed normal stage 1 sleep, increased stage 2 sleep, which was 60% of the total sleep time. There was also increased N3 sleep, which was 34% of total sleep time and absent REM sleep. During the night study, the patient had no apneas and 3 hypopneas. The patient's apnea-hypopnea index for the entire night was only 1.2 per hour. REM index was not seen due to lack of REM sleep and supine index was 1.2 per hour. EKG monitoring revealed an average heart rate of 53 beats per minute with a maximum of 69 beats per minute. No sustained arrhythmias were observed. PLMS were seen at an index of 23 per hour with only 1.6 per hour caused EEG arousals. Nocturnal oximetry study revealed an average oxygen saturation of 97% with a lowest of 91%. No significant desaturations of less than 90% were observed. Due to low AHI, the patient did not meet the split night criteria for CPAP initiation. IMPRESSION: 1. No clinically significant sleep disordered breathing. The patient's AHI for the entire night was 1.2 per hour. 2. No clinically significant nocturnal hypoxia. 3. Moderate PLMS without any significant EEG arousals. This does not need to be treated unless the patient has symptoms of restless [place] [address] SLEEP STUDY REPORT Name: REABHAVNA Beaulieu Room: [facility]#: [id number] Admission: 02/08/18 Attend Phys: Gualberto Duarte Discharge: Date of : 49 Report #: [id number] RECOMMENDATIONS: 1. The patient did not meet the split night criteria for CPAP initiation due to very low AHI. 2. Avoid [employer] depressants. 3. Weight loss is advised. <ELECTRONICALLY SIGNED> By: Zbe Layton MD 02/09/18 2226 1439 1524Aerik Layton MD /deven
== END ==
LOC: M.SLEEPLAB 20:00
DX: G47.33 Obstructive sleep apnea (adult) (pediatric) (principal); I48.0 Paroxysmal atrial fibrillation

== ENCOUNTER → 2018-12-15 | Outpatient (CLI) | payer MEDICARE, OTHER ==
[~2018-12-15] MED LIST changes: +PREDNISONE50 MG PO
[2018-12-15 10:43] LABS: MCH 30.9 pg (26.0-34.0); MCHC 34.1 g/dL (28.0-37.0); MCV 90.5 fL (80.0-100.0); MPV 7.8 fl. (7.2-11.1); RBC 3.87 mil/uL (4.50-6.00); RDW-CV 13.1 % (10.5-14.5); WBC 5.1 thou/uL (4.0-11.0)
[2018-12-15 10:49] VITALS: BP 105/75
[2018-12-15 10:57] LABS: APTT 35.9 Seconds (25.0-31.3); INR 1.2; PROTIME 12.6 Seconds (9.20-11.50)
[2018-12-15 11:15] LABS: CALCIUM 9.2 mg/dL (8.5-10.1); POTASSIUM 4.2 mmol/L (3.5-5.1)
[2018-12-15 11:25] VITALS: BP 152/101
[2018-12-15 11:28] VITALS: BP 146/107
[2018-12-15 11:30] VITALS: BP 166/85
[2018-12-15 12:08] VITALS: BP 138/71
--- NOTE | 2018-12-15 16:38 | EKG ---
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: : 1945 Requested By: Adarsh Haney Order Number: [id number] Reading MD: Adarsh Haney Measurements Intervals [place] Rate: 54 P: -16 AK: 211 QRS: 2 QRSD: 112 T: 45 QT: 472 QTc: 448 Interpretive Statements Atrial flutter Borderline intraventricular conduction delay Compared to ECG 07/23/2017 20:55:22 Sinus rhythm no longer present Electronically Signed On 12-15-2018 16:38:03 CDT by Adarsh Haney [email or web address] <ELECTRONICALLY SIGNED> By: Adarsh Haney MD, [facility] 12/15/18 1638 1048 1048 Adarsh Haney MD, FACC /EPI
== END | disposition home or self-care (01) ==
LOC: M.CL 10:10
PROVIDERS: Internal Medicine Cardiovascular Disease
DX: I48.91 Unspecified atrial fibrillation (principal); J44.9 Chronic obstructive pulmonary disease, unspecified; Z87.19 Personal history of other diseases of the digestive system; Z91.040 Latex allergy status; Z79.899 Other long term (current) drug therapy; Z98.890 Other specified postprocedural states; Z88.8 Allergy status to other drugs, medicaments and biological substances; Z79.891 Long term (current) use of opiate analgesic

== ENCOUNTER 2018-12-17 02:26 | Emergency (ER) | payer MEDICARE, OTHER ==
[~2018-12-17] VITALS: Ht 180.3 cm; Wt 138.4 kg
[~2018-12-17 02:26] MED LIST changes: -PREDNISONE50 MG PO
[2018-12-17 03:05] LABS: ABSOLUTE EOSINOPHILS 0.2 thou/uL (0.0-0.7); ABSOLUTE LYMPHOCYTES 0.4 thou/uL (0.8-5.3); ABSOLUTE MONOCYTES 0.3 thou/uL (0.0-1.2); ABSOLUTE NEUTROPHILS 5.5 thou/uL (1.6-8.1); BASOPHILS 0.4 %; EOSINOPHILS 3.2 %; HEMATOCRIT 34.9 % (42.0-52.0); LYMPHOCYTES 6.4 %; MCHC 34.3 g/dL (28.0-37.0); MCV 90.2 fL (80.0-100.0); MONOCYTES 4.4 %; MPV 7.8 fl. (7.2-11.1); NUCLEATED RBCS 0 /100WBC; PLATELET COUNT* 103 thou/uL (150-400); POLYS 85.6 %; RBC 3.87 mil/uL (4.50-6.00); RDW-CV 13.4 % (10.5-14.5); WBC 6.4 thou/uL (4.0-11.0)
[2018-12-17 03:14] LABS: ANION GAP 8 mmol/L (7-16); BUN 31 mg/dL (7-18); CALCIUM 8.7 mg/dL (8.5-10.1); CHLORIDE 107 mmol/L (98-107); CO2 29 mmol/L (21-32); CREATININE 1.9 mg/dL (0.6-1.3); GLUCOSE 156 mg/dL (70-99); POTASSIUM 3.9 mmol/L (3.5-5.1); SODIUM 144 mmol/L (136-145)
[2018-12-17 03:17] LABS: INR 1.3; PROTIME 13.3 Seconds (9.20-11.50)
[2018-12-17 03:25] LABS: ALBUMIN 3.8 g/dL (3.4-5.0); ALKALINE PHOSPHATASE 102 U/L (46-116); NT-PRO BRAIN NAT PEPTIDE 2092 pg/mL (<300); SGOT 12 U/L (15-37); SGPT 21 U/L (30-65); TOTAL BILIRUBIN 0.6 mg/dL (<0.1-1.0); TOTAL PROTEIN 6.7 g/dL (6.4-8.2); TROPONIN-I LEVEL <0.06 ng/mL (<0.06)
[2018-12-17] MEDS ORDERED: PREDNISONE50 MG PO (04:27)
[2018-12-17 04:37] VITALS: BP 151/80
== END 2018-12-17 04:37 | disposition home or self-care (01) ==
LOC: M.ERS 02:26
PROVIDERS: Emergency Medicine
DX: J44.1 Chronic obstructive pulmonary disease with (acute) exacerbation (principal); R53.1 Weakness; I50.9 Heart failure, unspecified; K21.9 Gastro-esophageal reflux disease without esophagitis; E66.01 Morbid (severe) obesity due to excess calories; I12.9 Hypertensive chronic kidney disease with stage 1 through stage 4 chronic kidney disease, or unspecified chronic kidney disease; N18.9 Chronic kidney disease, unspecified; E11.22 Type 2 diabetes mellitus with diabetic chronic kidney disease; I48.91 Unspecified atrial fibrillation; G47.30 Sleep apnea, unspecified; Z96.659 Presence of unspecified artificial knee joint; Z91.040 Latex allergy status; Z88.8 Allergy status to other drugs, medicaments and biological substances; Z87.891 Personal history of nicotine dependence

== ENCOUNTER → 2019-06-23 | Outpatient (CLI) | payer MEDICARE, OTHER ==
[~2019-06-23] MED LIST changes: +PREDNISONE50 MG PO
[2019-06-23 10:17] LABS: CALCIUM 8.8 mg/dL (8.5-10.1); CREATININE 2.3 mg/dL (0.6-1.3); POTASSIUM 4.4 mmol/L (3.5-5.1)
== END ==
LOC: M.LAB 09:46
PROVIDERS: Nurse Practitioner
DX: I48.0 Paroxysmal atrial fibrillation (principal)

== ENCOUNTER → 2019-07-28 | Outpatient (CLI) | payer MEDICARE, OTHER | LOC: M.LAB 03:42 | DX: E87.6 Hypokalemia (principal) ==

== ENCOUNTER 2020-09-16 17:11 | Inpatient (IN) | payer MEDICARE, OTHER ==
[~2020-09-16] VITALS: Ht 180.3 cm; Wt 134.3 kg
[2020-09-16 17:44] VITALS: BP 144/82
[2020-09-16] MEDS ORDERED: CALCITRIOL0.5 MCG PO (17:54)
[2020-09-16] MEDS ORDERED: FLECAINIDE ACE150 MG PO (17:54)
[2020-09-16] MEDS ORDERED: ZAROXOLYN 5MG TA5 MG PO (18:11)
[2020-09-16] MEDS ORDERED: NOVOLOG100 UNIT/1 SUBQ (18:12)
[2020-09-16] MEDS ORDERED: OMEPRAZOLE40 MG PO (18:14)
[2020-09-16 18:40] LABS: ABSOLUTE LYMPHOCYTES 0.5 thou/uL (0.8-5.3); BASOPHILS 0.4 %; HEMATOCRIT 37.1 % (42.0-52.0); HEMOGLOBIN 12.4 gm/dL (14.0-18.0); MCH 29.7 pg (26.0-34.0); MCHC 33.5 g/dL (28.0-37.0); RBC 4.19 mil/uL (4.50-6.00)
[2020-09-16 18:44] LABS: ABSOLUTE EOSINOPHILS 0.1 thou/uL (0.0-0.7); ABSOLUTE MONOCYTES 0.4 thou/uL (0.0-1.2); ABSOLUTE NEUTROPHILS 5.8 thou/uL (1.6-8.1); LYMPHOCYTES 7.5 %; MCV 88.5 fL (80.0-100.0); MONOCYTES 5.6 %; MPV 8.6 fl. (7.2-11.1); NUCLEATED RBCS 0 /100WBC; PLATELET COUNT* 111 thou/uL (150-400); POLYS 84.5 %; RDW-CV 14.3 % (10.5-14.5); WBC 6.9 thou/uL (4.0-11.0)
[2020-09-16 18:50] LABS: CREATININE 2.7 mg/dL (0.6-1.3); POTASSIUM 3.8 mmol/L (3.5-5.1)
[2020-09-16 18:53] LABS: APTT 33.9 Seconds (25.0-31.3); INR 1.1; PROTIME 11.3 Seconds (9.20-11.50)
[2020-09-16 19:01] LABS: ALBUMIN 3.2 g/dL (3.4-5.0); TOTAL BILIRUBIN 0.4 mg/dL (<0.1-1.0); TOTAL PROTEIN 7.1 g/dL (6.4-8.2)
--- NOTE | 2020-09-16 22:41 | NUR ---
PATIENT IS ON AN INPATIENT BED
[2020-09-16 23:57] VITALS: BP 155/86
[2020-09-17] VITALS (7 sets, daily range): BP systolic 132–160; BP diastolic 71–99
[2020-09-17 08:32] LABS: CALCIUM 9.7 mg/dL (8.5-10.1); CREATININE 2.4 mg/dL (0.6-1.3); POTASSIUM 3.7 mmol/L (3.5-5.1)
[2020-09-17 08:35] LABS: MAGNESIUM 1.8 mg/dL (1.8-2.4); PHOSPHORUS* 3.4 mg/dL (2.5-4.9)
[2020-09-17 11:17] LABS: CHOLESTEROL 146 mg/dL (<200); HDL CHOLESTEROL 34 mg/dL (>40); LDL CHOLESTEROL 81 mg/dL (<100); TC:HDL 4.3 Ratio (Not establshd); TRIGLYCERIDE 156 mg/dL (<150); VLDL 31 mg/dL (<40)
[2020-09-17 11:34] LABS: SERUM ASSESSMENT Clear
--- NOTE | 2020-09-17 14:10 | EKG ---
[place] [address] ELECTROCARDIOGRAM REPORT Name: BHAVNA REA Room: [facility]9 ADM IN .R.#: [id number] Admission: 09/16/20 Attend Phys: Juju Malloy Discharge: Date of : 49 Date of Service: 09/16/20 1747 Report #: [id number] THIS REPORT FOR: //name// [facility] ED Test Date: 2020-09-16 Test Time: 17:47:14 Pat Name: BHAVNA REA Department: Room: [facility] Gender: M Insulation Blower: : 1945 Requested By: Bel Palafox Order Number: [id number] MD: Onesimo Ware Measurements Intervals [place] Rate: 122 P: [place]: QRS: -24 QRSD: 107 T: 85 QT: 329 QTc: 469 Interpretive Statements Atrial flutter Borderline left axis deviation Nonspecific repol abnormality, diffuse leads Baseline wander in lead(s) V3,V4,V5,V6 Compared to ECG 12/17/2018 02:30:04 atrial flutter noted Electronically Signed On 09-17-2020 14:10:41 CDT by Onesimo Ware [email or web address] <ELECTRONICALLY SIGNED> By: Onesimo Ware MD, [facility] 09/17/20 1410 1747 174 Onesimo Ware MD, [facility] /EPI
--- NOTE | 2020-09-17 15:51 | EKG ---
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
--- NOTE | 2020-09-17 17:05 | 2DMMODE ---
[place] [address] 2 D/M-MODE ECHOCARDIOGRAM Name: BHAVNA REA Dionte Room: [address] ADM IN [facility]#: [id number] Admission: 09/16/20 Attend Phys: Juju Malloy Discharge: Date of : 49 Date of Service: 09/17/20 1704 Report #: [id number] THIS REPORT FOR: cc: MARICHUY RODGERS,MARICHUY Haney,Adarsh Echeverria MD [facility] ~ APPROVED REPORT Study performed: 09/17/2020 16:26:32 EXAM: Comprehensive 2D, Doppler, and color-flow Echocardiogram Patient Location: In-Patient Room #: [facility] Status: routine BSA: 2.47 HR: 65 bpm BP: 146/82 mmHg Rhythm: Atrial Fibrillation Other Information Study Quality: Good Indications Atrial Fibrillation 2D Dimensions IVSd: 12.70 (7-11mm) LVOT Diam: 20.44 (18-24mm) LVDd: 49.07 mm PWd: 12.40 (7-11mm) Ascending Ao: 35.90 (22-36mm) LVDs: 29.71 (25-40mm) Aortic Root: 38.07 mm Volumes Left Atrial Volume (Systole) LA ESV Index: 36.60 mL/m2 Aortic Valve AoV Peak Vamshi.: 1.10 m/s AO Peak Gr.: 4.84 mmHg LVOT Max P.11 mmHg AO Mean Gr.: 2.96 mmHg LVOT Mean P.56 mmHg LVOT Max V: 0.88 m/s AO V2 VTI: 19.13 cm LVOT Mean V: 0.57 m/s KIMBERLY (VTI): 2.62 cm2 LVOT V1 VTI: 15.26 [place] [address] 2 D/M-MODE ECHOCARDIOGRAM Name: BHAVNA REA Room: [address] IN ..#: [id number] Admission: 09/16/20 Attend Phys: Juju Malloy Discharge: Date of : 49 Date of Service: 09/17/20 1704 Report #: [id number] TDI Medial E' Vamshi.: 0.10 m/s Lateral E' Vamshi.: 0.16 m/s Pulmonary Valve PV Peak Vamshi.: 0.83 m/s PV Peak Gr.: 2.76 mmHg Tricuspid Valve RAP Estimate: 5.00 mmHg TR Peak Gr.: 20.45 mmHg RVSP: 25.00 mmHg PA Pressure: 25.00 mmHg Left Ventricle The left ventricle is normal size. There is normal LV segmental wall motion. Mild concentric left ventricular hypertrophy. Left ventricular systolic function is normal. LVEF is 55-60%. This study is not technically sufficient to allow evaluation of the LV diastolic function due to atrial fibrillation. Right Ventricle The right ventricle is normal size. The right ventricular systolic function is normal. Atria Left atrium is moderately dilated. Right atrium is mildly dilated. Aortic Valve The aortic valve is normal in structure. No aortic regurgitation is present. There is no aortic valvular stenosis. Mitral Valve The mitral valve is normal in structure. Trace mitral regurgitation. No evidence of mitral valve stenosis. Tricuspid Valve The tricuspid valve is normal in structure. Trace tricuspid regurgitation. No pulmonary hypertension. Pulmonic Valve The pulmonary valve is normal in structure. There is no pulmonic valvular regurgitation. Great Vessels The aortic root is normal in size. IVC [place] [address] 2 D/M-MODE ECHOCARDIOGRAM Name: BHAVNA REA Dionte Room: [address] IN .R.#: [id number] Admission: 09/16/20 Attend Phys: Juju Malloy Discharge: Date of : 49 Date of Service: 09/17/20 1704 Report #: [id number] Pericardium There is no pericardial effusion. <Conclusion> The left ventricle is normal size. Mild concentric left ventricular hypertrophy. Left ventricular systolic function is normal. LVEF is 55-60%. Left atrium is moderately dilated. Right atrium is mildly dilated. Trace mitral regurgitation. Trace tricuspid regurgitation. No pulmonary hypertension. <ELECTRONICALLY SIGNED> By: Adarsh Haney MD, FACC 09/17/201703 03 03 Adarsh Haney MD, FACC /INF
--- NOTE | 2020-09-17 18:33 | NUR ---
PT TRANSFERRED FROM ED AND ADMITTED AT APPROX 1445. PT IS A&O X4 AND DENIES ANY CONERNS AT THIS TIME. ASSESSMENT REVIEWED AND COMPLETED AND AGREES WITH THE ED ASSESSMENT. PT IS UP AD FAREED. PT IS ON 1999 FLUID RESTRICTION, I&O AND DAILY WEIGHTS. R LOWER LEG WITH CELLLULITUS. HEART RATE NOW 70-80'S. MEDICATIONS REVIEWED WITH PT AND MEDS ADMINISTERED ORDERED AT THIS TIME. PT ON CARB CONTROL DIET AND ATE 100% OF DINNER.
[2020-09-18] VITALS: BP 161/70
--- NOTE | 2020-09-18 00:28 | NUR ---
RECEIVED REPORT AND ASSUMED CARE AT 1900. VSS. CARDIAC MONITORING IN PLACE. ASSESSMENT COMPLETED CHARTED. PT REPORTS PAIN 3/10, DENIES NEED FOR MEDICATION AT THIS TIME. DISCUSSED PLAN OF CARE, VERBALIZED UNDERSTANDING. PT UP AD FAREED IN ROOM, ON RA. MEDCIATION PER ORDERS. ROUNDING COMPLETED AND ALL NEEDS MET. REPORT GIVEN TO MOISES PEDRAZA.
[2020-09-18 04:00] VITALS: BP 160/87
--- NOTE | 2020-09-18 04:25 | NUR ---
ASSSUMED PT CARE AT APPROX 0000 AFTER REPORT FROM BALJINDER PEDRAZA. REASSESSMENT REVIEWED AND THIS NURSE AGREES. PT IS NOT IN DISTRESS, NO ACUTE CHANGES NOTED THIS SHIFT. PT DENIES CHEST PAIN/DISCOMFORT. CALL LIGHT WITHIN REACH. HOURLY ROUNDING DONE FOR PT SAFETY.
[2020-09-18 08:00] VITALS: BP 141/77
[2020-09-18 08:57] LABS: CALCIUM 9.9 mg/dL (8.5-10.1); CREATININE 2.2 mg/dL (0.6-1.3); POTASSIUM 3.7 mmol/L (3.5-5.1)
--- NOTE | 2020-09-18 09:33 | EKG ---
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 : 1945 Requested By: Lizeth Redman Order Number: [id number] Reading MD: Onesimo Ware Measurements Intervals [place] Rate: 74 P: [place]: QRS: 7 QRSD: 111 T: 15 QT: 441 QTc: 490 Interpretive Statements Atrial flutter with predominant 4:1 AV block Borderline T wave abnormalities Borderline prolonged QT interval Compared to ECG 09/17/2020 11:50:53 no change Electronically Signed On 09-18-2020 9:33:06 CDT by Onesimo Ware [email or web address] <ELECTRONICALLY SIGNED> By: Onesimo Ware MD, FAC 09/18/20 0933 8 8 Onesimo Ware MD, [facility] /EPI
--- NOTE | 2020-09-18 10:41 | NUR ---
ASSUMED CARE OF PT AT 0730. PT SITTING UP IN THE CHAIR WAITING FOR BREAKFAST. A&0X4, DENIES ANY PAIN OR SHORTNESS OF BREATH AT THIS TIME. TRACING AFIB ON THE MIMEOGRAPH OPERATOR. RATE CONTROLLED IN THE 70'S-80'S. PT ON SOTALOL LOAD. ON RA SAT UPPER 90'S. PT UP AD FAREED IN ROOM. CARDIOLOGY CONSULT IN PLACE. PT GOAL FOR TODAY IS CONVERT TO SINUS RHYTHM AND IV ABX. AM ASSESSMENT CHARTED. MEDICATIONS PER JUL. PT REPOSITIONS SELF. HOURLY ROUNDING OBSERVED. BED IN LOW POSITION. CALL LIGHT WITHIN REACH. WILL CONTINUE PLAN OF CARE.
[2020-09-18 12:49] VITALS: BP 108/56
--- NOTE | 2020-09-18 14:55 | NUR ---
Pt is A&O. Resides at home with . Independent. No DME. Hx of [facility]. No hx of SNF. Cardiology following, planned cardioversion tomorrow. Goal is home at dc, no needs anticipated.
[2020-09-18] MEDS ORDERED: NEURONTIN100 MG PO (17:58)
[2020-09-18 18:53] VITALS: BP 128/53
[2020-09-19] VITALS (12 sets, daily range): BP systolic 93–124; BP diastolic 54–76
[2020-09-19 04:19] LABS: HEMATOCRIT 35.1 % (42.0-52.0); MCH 30.3 pg (26.0-34.0); MCHC 34.2 g/dL (28.0-37.0); MCV 88.5 fL (80.0-100.0); MPV 8.5 fl. (7.2-11.1); RBC 3.97 mil/uL (4.50-6.00); RDW-CV 14.4 % (10.5-14.5); WBC 8.1 thou/uL (4.0-11.0)
[2020-09-19 04:30] LABS: CALCIUM 9.7 mg/dL (8.5-10.1); CREATININE 2.4 mg/dL (0.6-1.3); MAGNESIUM 1.8 mg/dL (1.8-2.4); POTASSIUM 3.4 mmol/L (3.5-5.1)
[2020-09-19] MEDS ORDERED: SORINE 80 MG TA80 M1 PO ×2 (07:36→12:47)
[2020-09-19] MEDS ORDERED: CEPHALEXIN500 MG PO (07:38)
--- NOTE | 2020-09-19 11:07 | EKG ---
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: : 1945 Requested By: Lizeth Redman Order Number: [id number] Reading MD: Onesimo Ware Measurements Intervals [place] Rate: 83 P: [place]: QRS: -8 QRSD: 101 T: -12 QT: 439 QTc: 516 Interpretive Statements Atrial fibrillation Ventricular premature complex Abnormal R-wave progression, early transition Borderline repolarization abnormality Prolonged QT interval Compared to ECG 09/18/2020 08:19:12 Ventricular premature complex(es) now present Atrial flutter no longer present Electronically Signed On 09-19-2020 11:07:03 CDT by Onesimo Ware [email or web address] <ELECTRONICALLY SIGNED> By: Onesimo Ware MD, FAC 09/19/20 1107 9 9 Onesimo Ware MD, [facility] /EPI
--- NOTE | 2020-09-19 11:13 | NUR ---
Nutrition: Pt admitted with CHF exac. Wt: 296#. Albumin 3.2. Seen for high BMI. Pt stated he is reading over all the diet info from Cardiac booklet he was given. He is discharging home today. Left further nutrition info with pt - general healthy diet, healthy fats, wt loss tips. Consider low nutriiton risk.
[2020-09-19] MEDS ORDERED: BUMETANIDE 1 MG1 M1 PO (12:47)
--- NOTE | 2020-09-19 15:33 | NUR ---
PT DISCHARGING HOME WITH NO CONCERNS AT THIS TIME HAS HAD CARDIOVERSION BEFORE WILL FOLLOW-UP WITH ORTHO GAVE PT EXERCISES FOR POSSIBLE PLANTAR FASCITIS THAT COULD HELP
--- NOTE | 2020-09-19 15:51 | EKG ---
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: AT : 1945 Requested By: Lizeth Redman Order Number: [id number] Eufemia MD: Onesimo Ware Measurements Intervals [place] Rate: 76 P: 33 [place]: 184 QRS: -8 QRSD: 104 T: 15 QT: 503 QTc: 566 Interpretive Statements Sinus rhythm Borderline T wave abnormalities Prolonged QT interval Compared to ECG 09/19/2020 08:20:47 Atrial fibrillation no longer present Ventricular premature complex(es) no longer present Electronically Signed On 09-19-2020 15:51:12 CDT by Onesimo Ware [email or web address] <ELECTRONICALLY SIGNED> By: Onesimo Ware MD, FACC 09/19/20 1551 1320 1320 Onesimo Ware MD, FAC /EPI
--- NOTE | 2020-09-29 10:00 | CARD ---
[address] [address] CARDIAC CATH REPORT Name: BHAVNA REA Room: [address] IN M.R.#: [id number] Admission: 09/16/20 Attend Phys: Brittnee Quezada Discharge: 09/19/20 Date of : 49 Report #: [id number] THIS REPORT FOR: cc: MARICHUY RODGERS,Adarsh Ingram MD [facility] ~ DOC #: [id number] Adarsh Haney MD DATE OF SERVICE: 09/19/2020 PROCEDURE: DC cardioversion. INDICATION: Atrial fibrillation that is persistent. DESCRIPTION OF PROCEDURE: After informed consent was obtained, the patient was brought to the cardiac holding area. The patient was given 100 mg of intravenous fentanyl and 4 mg of intravenous Versed. Once adequate sedation was achieved, the patient was cardioverted with a single biphasic shock of 360 joules from atrial fibrillation to normal sinus rhythm. The patient tolerated the procedure well without complication. IMPRESSION: 1. Persistent atrial fibrillation. 2. Successful direct current cardioversion to normal sinus rhythm. MD RUTHIE LopesL/JAT <ELECTRONICALLY SIGNED> By: Adarsh Haney MD, [facility] 09/29/20 1000 0803 1949[facility]christ[facility] Haney MD, [facility] /nt
== END 2020-09-19 15:35 | disposition home or self-care (01) | DRG 602 ==
LOC: M.ERS 17:11 → M.TBA-ER 20:06 → M.2W 20:06
PROVIDERS: Internal Medicine; Nurse Practitioner Family; Registered Nurse; ADMIT Internal Medicine; ATTEND Internal Medicine
PROC: 5A2204Z Restoration of Cardiac Rhythm, Single (ICD-10-PCS; principal; 2020-09-19)
DX: L03.115 Cellulitis of right lower limb (principal); I50.33 Acute on chronic diastolic (congestive) heart failure; I13.0 Hypertensive heart and chronic kidney disease with heart failure and stage 1 through stage 4 chronic kidney disease, or unspecified chronic kidney disease; N18.4 Chronic kidney disease, stage 4 (severe); D68.69 Other thrombophilia; Z68.41 Body mass index [BMI] 40.0-44.9, adult; I48.19 Other persistent atrial fibrillation; Z20.822 Contact with and (suspected) exposure to COVID-19; K21.9 Gastro-esophageal reflux disease without esophagitis; E78.5 Hyperlipidemia, unspecified; E66.01 Morbid (severe) obesity due to excess calories; E11.22 Type 2 diabetes mellitus with diabetic chronic kidney disease; G47.33 Obstructive sleep apnea (adult) (pediatric); I48.0 Paroxysmal atrial fibrillation; Z96.653 Presence of artificial knee joint, bilateral; Z79.899 Other long term (current) drug therapy; Z79.4 Long term (current) use of insulin; Z91.040 Latex allergy status; Z88.8 Allergy status to other drugs, medicaments and biological substances; Z87.891 Personal history of nicotine dependence